=== PATIENT | male | born 1940 | race Caucasian/White ===

== ENCOUNTER → 2021-05-08 | Outpatient (CLI) | payer MEDICARE ==
--- NOTE | 2021-05-08 12:46 | P.STRESS ---
- Stress Test Note Stress Test Results/Findings: Exam Performed: stress echo exercise with con Exam Date: 05/08/21 Reason for Exam: ABNORMAL EKG Height: 5 ft 7 in Weight: 98.883 kg Protocol: BRAD Stage: 1 Duration of Exercise: 1:39 Resting Heart Rate: 79 Resting Blood Pressure: 158/75 Maximum Achieved Heart Rate: 124 Maximum Achieved Blood Pressure: 158/75 85% PMHR: 119 100% PMHR: 140 METS: 2.8 Technologist Comment: Stress Test Results/Findings: Patient underwent exercise stress echo with a Brad protocol treadmill stress test. Patient exercised into Stage 1 for a total of 1 minute 39 seconds reaching a total of 2.8 METS. Patient's maximum heart rate was 124 which represented 89 % age-predicted maximum heart rate. Stress EKG portion: At baseline patient's EKG showed normal sinus rhythm, normal axis, ST depressions V4 through V6, 2, 3, aVF. At peak exercise, EKG showed accentuation of ST depressions with more downsloping ST depressions up to 1 mm in the inferior and lateral leads which is nonspecific given Baseline abnormal EKG, frequent PVCs. Stress echo portion: 2-D echocardiogram was performed in the parasternal long, personal short, apical 2 and apical four-chamber views at rest, peak exercise and in recovery. At baseline, echocardiogram showed left ventricular ejection fraction 55% without wall motion abnormalities. With peak exercise, echocardiogram shows basal to mid inferior and basal to mid inferior lateral induced hypokinesis consistent with ischemia. Conclusions: 1. Abnormal stress test with inducible inferior ischemia by echocardiogram 2. Baseline abnormal EKG 3. Normal ejection fraction 55% 4. Poor exercise capacity.
== END | disposition home or self-care (01) ==
LOC: RADNMMAIN 08:34
PROVIDERS: ATTEND Family Medicine
DX: R94.31 Abnormal electrocardiogram [ECG] [EKG] (principal)
CPT/HCPCS: C8930; Q9950; 93351

== ENCOUNTER → 2021-05-29 | Day surgery (SDC) | payer MEDICARE ==
[2021-05-28 08:53] VITALS: BMI 35.2
[~2021-05-29] MED LIST: ACETAMINOPHEN TAB 500 MG TAB PO PRN; ALPRAZolam 0.25 MG TAB PO PRN; ALPRAZolam 0.5 MG TAB PO PRN; ASPIRIN 325 MG TAB PO STA; ATORVASTATIN 20 MG TAB PO SCH; ATORVASTATIN 80 MG TAB PO STA; ATROPINE SULFATE 0.1 MG/ML 10ML SYRINGE IV PRN; CLOPIDOGREL 75 MG TAB PO SCH; FLUMAZENIL 0.1 MG/ML 5 ML VIAL IVP ONE; IOPAMIDOL-370 100ML BTL INJ ONE; IOPAMIDOL-370 125ML BTL INJ ONE; ISOSORBIDE MONONITRATE ER 30 MG TAB.ER.24H PO SCH; LIDOCAINE 1% INJ 10MG/ML (20 ML MDV) SQ ONE; MAG HYDROX/AL HYDROX/SIMETH 30 ML CUP PO PRN; METOPROLOL SUCCINATE (ER) 25 MG TAB.ER.24H PO SCH; MIDAZOLAM 2 MG/2 ML VIAL IV ONE; MULTIVITAMINS, THERA 1 EACH TAB PO SCH; NALOXONE 0.4 MG/ML 1 ML VIAL IV ONE; NIFEdipine XL 30 MG TAB.ER.24 PO SCH; NITROGLYCERIN SL TABS 0.4 MG TAB SUBLINGUAL PRN; NON FORMULARY DRUG (Omega-3 Fatty Acids/Fish Oil [Fish Oil 1,000 Mg Softgel] 1 EACH Capsul PO SCH; PANTOPRAZOLE 40 MG TABLET PO SCH; RX INFO: IV CONTRAST WAS GIVEN 1 EACH MISC MISCELLANE PRN; SODIUM CHLORIDE 0.9% 1,000 ML IV SCH; SODIUM CHLORIDE 0.9% 1,000 ML in EMPTY BAG 1 BAG IV ONE; ZOLPIDEM 5 MG TAB PO PRN; diphenhydrAMINE 50 MG/ML 1 ML VIAL IVP ONE; fentaNYL (PF) 50 MCG/ML 2 ML AMP IV ONE; methylPREDNISolone SOD SUCCI 125 MG/2 ML VIAL IV ONE
[2021-05-29 06:57] VITALS: TEMP 97.3
--- NOTE | 2021-05-29 09:03 | CC ---
CARDIAC CATHETERIZATION REPORT PROCEDURE: Cardiac catheterization. INDICATION: Exertional shortness of breath with abnormal stress echo showing ischemia in the inferior and inferolateral zone. PROCEDURE NOTE: After obtaining informed consent,, left heart catheterization and coronary angiogram are performed via the right femoral artery using standard Marisel catheters. The patient tolerated the procedure well without any obvious immediate complications. A femoral angiogram was performed and Angio-Seal will be deployed for hemostasis. HEMODYNAMICS: Left ventricular end-diastolic pressure is 14-16 mm. There is no significant gradient across the aortic valve. LEFT VENTRICULOGRAM: Not performed. ANGIOGRAPHIC DATA: The left main coronary artery: Left main coronary artery is a normal-sized vessel and is free of stenosis. Divides into left anterior descending coronary artery and circumflex coronary artery. Circumflex coronary artery is a nondominant vessel, gives off a large caliber OM branch and continues as a small AV groove circ. There are 2 areas of tight stenosis within the OM, the proximal 70-80% and distal focal 70% stenosis. LAD shows a mild atherosclerotic plaque in its midportion. Right coronary artery is a large dominant vessel, shows mild diffuse disease involving the PDA and PLV branches. CONCLUSIONS: Severe single-vessel coronary artery disease, which explains his stress test abnormality. PLAN: I reviewed angiographic data with Dr. Beltran, the on-call clinical research monitor, who will attempt angioplasty of circumflex coronary artery. MMODL / IJN: [id number] /
[2021-05-29 09:05] LABS: Glucose,Whole Blood 134 mg/dL (75-99)
--- NOTE | 2021-05-29 09:19 | PTCA ---
PERCUTANEOUSTRANS CORORONARY ANGIOGRAPHY DATE OF SERVICE: 05/29/2021 PERFORMING PHYSICIAN: Redd Beltran MD. PROCEDURE PERFORMED: 1. Successful stenting of the distal left circumflex coronary artery using 2.5 x 15 mm Xience drug-eluting stent with an excellent angiographic result. 2. Successful stenting of the proximal left circumflex using 3.5 x 18 mm Xience drug- eluting stent with an excellent angiographic result. INDICATION: This is an 80-year-old gentleman who sees Dr. Martinez in the office regularly, who was experiencing symptoms of chest discomfort and underwent a heart catheterization earlier today and that showed severe disease involving the distal and proximal left circumflex. Because of that, a PCI was advised. APPROACH: Right common femoral artery. COMPLICATION: None. LEVEL OF SEDATION: Moderate with sedation length of 30 minutes. PROCEDURE DESCRIPTION: Please refer to diagnostic heart catheterization that was performed by Dr. Martinez earlier today. Anticoagulation was initiated using heparin. Subsequently, the left main was engaged using an EBU guide. I wired the left circumflex using a run-through wire. After that, I did balloon angioplasty using 2.5 x 12 mm balloon for the distal and proximal left circumflex. Attempting advancing 2.5 mm stent to the distal left circumflex was unsuccessful because the stent would not make the turn in the proximal tortuous area. I did balloon angioplasty again using 3.5 mm balloon and in spite of that the stent was unable to go. At that point, I decided to use a GuideLiner. With GuideLiner use, I was able to get the stent distally, as well as proximally. Distally I deployed 2.5 x 15 mm stent and proximally I deployed 3.5 x 18 mm. Both stents were deployed under 14 atmospheres for 20 seconds with an excellent angiographic result. POSTPROCEDURE MANAGEMENT: 1. Dual anti-platelet therapy. 2. Aggressive cholesterol control. 3. Risk factor modifications. 4. Follow up with the patient. MMODL / IJN: [id number] /
--- NOTE | 2021-05-29 09:28 | CT ---
EXAMINATION TYPE: CT brain wo con for TPA DATE OF EXAM: 05/29/2021 COMPARISON: None HISTORY: altered mental status, Rt sided weakness CT DLP: 1036 mGycm Automated exposure control for dose reduction was used. FINDINGS: Mild to moderate generalized degenerative change. No midline shift. Exam limited by motion. Low-atten uation the white matter is nonspecific but most typical remote microvascular ischemia. No acute hemor rhage or mass effect. Orbits symmetric. Mild changes of chronic sinusitis. Craniocervical junction ma intained. IMPRESSION: 1. LIMITED EXAM DUE TO MOTION ARTIFACT. DEGENERATIVE AND NONSPECIFIC WHITE MATTER CHANGES MOST TYPICA L OF REMOTE WHITE MATTER ISCHEMIA. IF THERE IS CONCERN FOR ACUTE ISCHEMIA CORRELATE WITH MRI CLINI [facility] WARRANTED. 2. NO EVIDENCE OF ACUTE HEMORRHAGE OR MASS EFFECT.
[2021-05-29 09:42] VITALS: PULSE 64
[2021-05-29 09:52] LABS: Basophils % (A) 0 %; Eosinophils % (A) 0 %; HCT 34.5 % (39.0-53.0); HGB 12.1 gm/dL (13.0-17.5); Lymphocytes # (A) 0.8 k/uL (1.0-4.8); Lymphocytes % (A) 9 %; MCH 31.8 pg (25.0-35.0); MCHC 35.2 g/dL (31.0-37.0); MCV 90.4 fL (80.0-100.0); Mean Platelet Volume 9.5; Monocytes # (A) 0.2 k/uL (0-1.0); Monocytes % (A) 2 %; Neutrophils # (A) 8.5 k/uL (1.3-7.7); Neutrophils % (A) 89 %; Platelet Count 158 k/uL (150-450); RBC 3.81 m/uL (4.30-5.90); RDW 12.6 % (11.5-15.5); WBC 9.6 k/uL (3.8-10.6)
[2021-05-29 09:57] LABS: INR 1.4 (<1.2); Prothrombin Time 14.3 sec (9.0-12.0)
[2021-05-29 10:04] LABS: African American GFR (CKD) >90 (>60 ml/min/1.73 sqM); Anion Gap 6 mmol/L; Blood Urea Nitrogen 15 mg/dL (9-20); Calcium 7.7 mg/dL (8.4-10.2); Carbon Dioxide 21 mmol/L (22-30); Chloride 112 mmol/L (98-107); Glucose 130 mg/dL (74-99); Non-African American GFR(CKD) 89 (>60 ml/min/1.73 sqM); Potassium 3.7 mmol/L (3.5-5.1); Sodium 139 mmol/L (137-145)
--- NOTE | 2021-05-29 10:43 | CT ---
EXAMINATION TYPE: CT angio head neck DATE OF EXAM: 05/29/2021 HISTORY: CVA COMPARISON: CT scan 05/29/2021 CT DLP: 407 mGycm. Automated Exposure Control for Dose Reduction was Utilized. TECHNIQUE: CTA scan of the neck is performed without and with IV Contrast, patient injected with 65 ml mL of Isovue 370, axial images are obtained, coronal and sagittal reformatted images are reviewed. Three-D reconstructed images are created on an independent workstation and reviewed. FINDINGS: There is abrupt truncation of the left middle cerebral artery suspicious for left MCA occlusion. Vert ebrobasilar system is patent with slightly dominant right vertebral artery. Posterior cerebral arteri es are somewhat diminutive in size but appear to enhance. Degenerative change of the spine and low at tenuation white matter is nonspecific but most typical remote white matter ischemia. No sizable aneur ysm or vascular malformation. It is extensive irregularity involving the carotid arteries on the right with the plaque involving th e proximal internal carotid artery. Approximately 60-70% stenosis suspected. Assessment of the left p roximal ICA is limited. There is extensive atherosclerotic plaque and suspected significant greater t jesus 70% stenosis. Groundglass changes seen in the bilateral upper lobes. Hypertrophic and degenerativ e changes of the spine. Atherosclerotic change of the aorta. IMPRESSION: 1. 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 Report called to referring clinician. 2. Suspected right proximal ICA significant stenosis. Evaluation of the left ICA is limited due to te chnical factors could not exclude a significant stenosis.
[2021-05-29 10:49] VITALS: BP 149/70; RESP 18
== END ==
LOC: CATHCVL 06:18
PROVIDERS: ATTEND Internal Medicine Cardiovascular Disease
DX: I67.82 Cerebral ischemia (principal); I25.10 Atherosclerotic heart disease of native coronary artery without angina pectoris; I10 Essential (primary) hypertension; E78.5 Hyperlipidemia, unspecified; Z87.891 Personal history of nicotine dependence
CPT/HCPCS: 93458; 80048; 85025; 85610; 85730; 70496; 70498; C9600; C1769 ×3; C1760; C1887 ×2; C1725 ×2; C1894; C1874; J2250; J1200; J2310; J2930; J2001; J3010; J1644; Q9967 ×2; 70450